=== PATIENT | male | born 1985 | race Caucasian/White ===

== ENCOUNTER 2023-08-27 15:17 | Emergency (ER) | payer OTHER, SELFPAY ==
[2023-08-27 15:25] VITALS: BP 149/90; PULSE 98; RESP 17; TEMP 36.9; O2SAT 98; BMI 30.4
--- NOTE | 2023-08-27 15:33 | ED_ITS ---
HPI - General Adult General Time Seen by Provider: 15:33 Date Seen: 08/27/23 Chief complaint: Cough Stated complaint: cough, headache, ear pain Time Seen by Provider: 08/27/23 15:33 Source: patient and RN notes reviewed Mode of arrival: ambulatory Limitations: no limitations History of Present Illness HPI narrative: Patient is a 38-year-old male coming in with complaint of right ear pain with underlying upper respiratory symptoms. He started with headache, congestion cough about 5 days ago. No documented fever. Patient is a smoker, denies any prior lung issues or any diagnosis of asthma. He quit going to work on Wednesday, is requesting a note for work. He is not aware of any ill contacts. His right ear is hurting but denies any change in hearing. Related Data Previous Rx's Medication Instructions Recorded amoxicillin 875 mg tablet 875 mg PO BID #14 tabs 08/27/23 Allergies Allergy/AdvReac Type Severity Reaction Status Date / Time No Known Drug Allergies Allergy Verified 08/27/23 15:28 Review of Systems Status of ROS: Reports: 6 or more systems reviewed and unremarkable except as noted in History and below PFSH PFSH Social History Smoking Status: Never smoker Do you use any of these nicotine containing products: None How often do you have a drink containing alcohol: never AUDIT-C Alcohol total score: 0 Non-prescribed substance use: denies use Exam Const: Vital Signs, click to edit/add: Vital Signs - 24 hr 08/27/23 15:25 08/27/23 16:26 Temperature 98.4 F 98.4 F Pulse Rate [Pulse Oximeter] 98 98 Respiratory Rate 17 17 Blood Pressure [Ri ght Upper Arm] 149/90 H 149/90 H Pulse Oximetry 98 Oxygen Delivery Me thod Room Air This 38-year-old male had solitary harsh cough that I could hear before coming into the room. Otherwise he is sitting up on the bed, breathing easily on room air, speech is normal, not hoarse, able to speak in complete sentences. Sclera clear, conjugate gaze. Right tympanic membrane is looking more reddish, losing its light reflects, certainly appears different than his left tympanic membrane. There is Steri min obscuring the posterior aspect of his left tympanic membrane but could see anteriorly around this and had a completely clear and translucent left TM. Oropharynx with a little erythematous stippling on the soft palate but no or pharyngeal swelling, no significant exudates or erythema, tongue is normal, well-hydrated mucous membranes. Lungs are clear, good air entry, no wheezing or crackles. CV regular rate and rhythm, no murmur, normal S1 and S2. Documenting provider has reviewed patient's vital signs: yes Course Course ED Course: Reviewed with patient the findings on examination, his right ear is continuing to bother him and is worsening per report. Will treat for ear infection. We reviewed that he likely has an underlying viral upper respiratory infection and will likely just need to continue with [id number] medication management of this. He does have a triple swab pending and we will contact him with the results if anything is positive and guide therapy accordingly if there is any indication for anything further. Vital Signs Vital signs: Initial Vital Signs Temperature 98.4 F 08/27/23 15:25 Temperature Source Temporal Artery Scan 08/27/23 15:25 Pulse Rate 98 08/27/23 15:25 Pulse Rhythm Regular 08/27/23 15:25 Respiratory Rate 17 08/27/23 15:25 Blood Pressure 149/90 H 08/27/23 15:25 Blood Pressure Mean 109 H 08/27/23 15:25 Pulse Oximetry 98 08/27/23 15:25 Oxygen Delivery Method Room Air 08/27/23 15:25 Vital Signs Temperature 98.4 F 08/27/23 15:25 Pulse Rate 98 08/27/23 15:25 Respiratory Rate 17 08/27/23 15:25 Blood Pressure 149/90 H 08/27/23 15:25 Pulse Oximetry 98 08/27/23 15:25 Oxygen Delivery Method Room Air 08/27/23 15:25 Temperature 98.4 F 08/27/23 16:26 Pulse Rate 98 08/27/23 16:26 Respiratory Rate 17 08/27/23 16:26 Blood Pressure 149/90 H 08/27/23 16:26 Pulse Oximetry 98 08/27/23 15:25 Oxygen Delivery Method Room Air 08/27/23 15:25 Medical Decision Making Lab Data Lab results reviewed: Yes I reviewed the patient's lab results Lab results narrative: Patient has COVID, will have nursing staff contact him and have him quarantine per CDC guidelines. Labs: Lab Results 08/27/23 Range/Units 15:20 SARS-CoV-2 (PCR) POSITIVE SARS-CoV-2 A (Negative) Influenza Type A (PCR) Negative PCR FLU A (Negative) Influenza Type B (PCR) Negative PCR FLU B (Negative) RSV (PCR) Negative PCR RSV (Negative) Critical Care Time Critical Care Time Critical Care Time: No Discharge Plan Discharge Clinical Impression: Infection of right ear, COVID-19 Patient Disposition: Home, Self-Care Condition: Stable Instructions: Ear Infection (ED), Upper Respiratory Infection (ED) Additional Instructions: Can continue with Tylenol and ibuprofen as needed for pain control, follow bottle directions for dosing. As far as cough and cold medicine, can take [id number] products of choice following directions on labels. Will initiate antibiotics with amoxicillin for your ear, take as prescribed and complete them. If you are not improving over the next week or worsening at any point, have further concerns, please seek re-evaluation. We will contact you if any of the viral swab is positive. Note provided to be out of work. Activity Level: Activity as Tolerated Discharge Diet: Regular Prescriptions: New amoxicillin 875 mg tablet 875 mg PO BID Qty: 14 0RF Follow Up/Referrals: Mary Alice Chopra NP [Primary Care Provider] - Stand Alone Forms: [employer] Info Instructions
[2023-08-27 16:26] VITALS: BP 149/90; PULSE 98; RESP 17; TEMP 36.9
[2023-08-27 16:36] LABS: PCR FLU A Negative PCR FLU A (Negative); PCR FLU B Negative PCR FLU B (Negative); PCR RSV Negative PCR RSV (Negative)
[2023-08-27 16:49] LABS: SARS PCR* POSITIVE SARS-CoV-2 (Negative)
--- NOTE | 2023-08-27 16:59 | ED.NURSE ---
Attempted to call with COVID results. Left voicemail for Pt to callback.
--- NOTE | 2023-08-27 17:06 | ED.NURSE ---
Spoke to Pt via phone, notified of COVID results. Education provided, including need for quarantine. Denies further questions at this time.
== END 2023-08-27 16:34 | disposition home or self-care (01) ==
LOC: ED 16:34
PROVIDERS: Emergency Provider Family Medicine; PCP Nurse Practitioner Family
DX: H66.91 Otitis media, unspecified, right ear (principal); U07.1 COVID-19
CPT/HCPCS: 87631; 99283

== ENCOUNTER 2023-12-28 12:27 | Emergency (ER) | payer OTHER, SELFPAY ==
[2023-12-28 12:34] VITALS: BP 126/79; PULSE 82; RESP 18; TEMP 36.9; O2SAT 97; BMI 33.3
--- NOTE | 2023-12-28 12:43 | ED.GENADULT ---
HPI - General Adult General Chief complaint: Back Injury/Pain Stated complaint: Lower back pain Time Seen by Provider: 12/28/23 12:31 History of Present Illness HPI narrative: lower back pain that started yesterday, denies injury. twisting motion at work 38-year-old man presenting to the emergency department with concern of back injury. 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 [place] a tension initiate yesterday at work such that he needed to pause what he was doing. Pain has only been escalating since beginning more intensely about an hour after the initial hint of discomfort. Sharp and cramping. Hard to sleep. Intense pain across the low back. Not radiating into his legs. No loss of bowel or bladder control. He acknowledges that he has a physical job and takes care to stay in good shape. Stretches regularly at least before and after work. No significant prior injury. Attempted treatment with Biofreeze. Related Data Home Medications Medication Instructions Recorded Confirmed acetaminophen 325 mg tablet 650 mg PO ONCE PRN 01/07/24 01/07/24 (Tylenol) ibuprofen 200 mg tablet 800 mg PO Q6H PRN 01/07/24 01/07/24 Previous Rx's Medication Instructions Recorded methylprednisolone 4 mg tablets in See Rx Instructions PO .COMPLEX 01/03/24 a dose pack (Medrol (Max)) #21 ea morphine 15 mg immediate release 15 mg PO Q6H PRN pain #40 tabs 01/07/24 tablet Allergies Allergy/AdvReac Type Severity Reaction Status Date / Time No Known Drug Allergies Allergy Verified 12/31/23 10:01 Review of Systems Status of ROS: Reports: 6 or more systems reviewed and unremarkable except as noted in History and below [facility] Medical History (Updated 01/12/24 @ 00:00 by Jose Carlos Duffy) No significant past medical history Surgical History Hx of appendectomy ?Z90.49 - Acquired absence of other specified parts of digestive tract (ICD-10) Family History Aunt Breast cancer Father High blood pressure Social History Narrative: , seven kids, [employer]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 Well-built. He is standing uncomfortably when I enter the room. Hand at right low back. Transitions with discomfort. No hypesthetic response to palpation of the low back. No midline back tenderness. Pain noted in a broad area across the low back. No piriformis pain. Tense low anna-lumbar muscles. SLR negative. Seems to have somewhat positive Irma's with pain generated in the right low back. Pain seems to be more at the right surrounding area of the right SI joint. Truncal rotation either direction limited to 20 degrees. More pain to right. Good strength throughout the lower extremities and with 1+ DTRs. Const: Vital Signs, click to edit/add: Vital Signs - 24 hr 12/28/23 12:34 Temperature 98.5 F Pulse Rate [Right Pulse Oximeter] 82 Respiratory Rate 18 Blood Pressure [Ri ght Upper Arm] 126/79 Pulse Oximetry 97 Oxygen Delivery Me thod Room Air Documenting provider has reviewed patient's vital signs: yes Course Vital Signs Vital signs: Initial Vital Signs Temperature 98.5 F 12/28/23 12:34 Temperature Source Temporal Artery Scan 12/28/23 12:34 Pulse Rate 82 12/28/23 12:34 Respiratory Rate 18 12/28/23 12:34 Blood Pressure 126/79 12/28/23 12:34 Blood Pressure Mean 94 12/28/23 12:34 Blood Pressure Position Sitting 12/28/23 12:34 Pulse Oximetry 97 12/28/23 12:34 Oxygen Delivery Method Room Air 12/28/23 12:34 Vital Signs Temperature 98.5 F 12/28/23 12:34 Pulse Rate 82 12/28/23 12:34 Respiratory Rate 18 12/28/23 12:34 Blood Pressure 126/79 12/28/23 12:34 Pulse Oximetry 97 12/28/23 12:34 Oxygen Delivery Method Room Air 12/28/23 12:34 Temperature 98.5 F 12/28/23 12:34 Pulse Rate 82 12/28/23 12:34 Respiratory Rate 18 12/28/23 12:34 Blood Pressure 126/79 12/28/23 12:34 Pulse Oximetry 97 12/28/23 12:34 Oxygen Delivery Method Room Air 12/28/23 12:34 Medical Decision Making MDM Narrative Medical decision making narrative: Per his question I doubt that available imaging will provide an answer at this time. Seems to have irritated the right SI joint area with resulting muscle spasm. There may also be an evolving discogenic problem. Due to the degree of his pain, I would like to be more proactive and initiate a course of prednisone. Does have a relationship with a chiropractor and would connect with primary care for PT. Will need a work note. See patient discharge plan for further discussion. Discharge Plan Discharge Clinical Impression: Sacroiliac (ligament) sprain, Muscle spasm Patient Disposition: Home, Self-Care Condition: Stable Additional Instructions: Can take up to 800 mg of ibuprofen or up to 1000 mg of acetaminophen per dose. Alternative to the ibuprofen can take up to 500 mg naproxen twice daily. See handout on exercises for sacroiliac joint pain. Since you have access to a chiropractor, this might be a good place to start as well. You might want to schedule appointment with your primary care provider if further paperwork is needed or further evaluation given that this was a work related injury. Prednisone and cyclobenzaprine and small quantity of Mead from [facility]. Take the prednisone has 60mg daily days 1 - 2; then 40mg daily days 3 - 5. Puede haylee hasta 800 mg de ibuprofeno o hasta 1000 mg de paracetamol por dosis. Alec alternativa al ibuprofeno se pueden haylee hasta 500 mg de naproxeno dos veces al d?a. Consulte el folleto sobre ejercicios para el dolor de la articulaci?n sacroil?maury. Dado que tiene acceso a un quiropr?ctico, renetta tambi?n podr?a ser un buen lugar para comenzar. Es posible que desee programar sarah luigi con high proveedor de atenci?n primaria si se necesita m?s documentaci?n o sarah evaluaci?n adicional, dado que se trata de sarah lesi?n relacionada con el trabajo. Prednisona y ciclobenzaprina y lidia?a cantidad de Mead de [facility]. Haylee la prednisona tiene 60 mg diarios d?as 1 - 2; luego 40 mg diarios los d?as 3 - 5. Prescriptions: No Action ibuprofen 200 mg tablet 800 mg PO Q6H PRN acetaminophen [Tylenol] 325 mg tablet 650 mg PO ONCE PRN morphine 15 mg tablet 15 mg PO Q6H PRN (Reason: pain) Qty: 40 0RF methylprednisolone [Medrol (Max)] 4 mg tablets,dose pack See Rx Instructions .ROUTE .COMPLEX Qty: 21 0RF Rx Instructions: for 6 days Follow Up/Referrals: Trip Yoo LAT, ATC, CSCS [Automotive Mechanical Engineer Certified] - Stand Alone Forms: [facility] Info Instructions
== END 2023-12-28 13:50 | disposition home or self-care (01) ==
LOC: ED 13:28
PROVIDERS: Emergency Provider Family Medicine
DX: M62.830 Muscle spasm of back (principal); S33.6XXA Sprain of sacroiliac joint, initial encounter
CPT/HCPCS: 99283; 99284

== ENCOUNTER 2024-01-03 16:51 | Emergency (ER) | payer OTHER, SELFPAY ==
[2024-01-03 17:12] VITALS: BP 144/87; PULSE 82; RESP 18; TEMP 36.7; O2SAT 98; BMI 33.5
--- NOTE | 2024-01-03 18:36 | ED.BACK ---
HPI - Back Pain/Injury General Time Seen by Provider: 18:36 Date Seen: 01/03/24 Chief Complaint: Back Injury/Pain Stated Complaint: Lower back pain, meds arent working Time Seen by Provider: 01/03/24 18:36 Source: patient and RN notes reviewed Mode of arrival: ambulatory Limitations: no limitations History of Present Illness HPI Narrative: Patient is a very pleasant 38-year-old gentleman previously healthy with out history of back pain who returns to the [facility] for the 2nd time with back discomfort. 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 He has never had problems with that before and it is not excessively heavy. He notes he felt something when he turned back facing forward after moving a piece of sheet metal. He does not describe it is significant pain. He states the pain did not start until approximately an hour later. He stopped and got some Biofreeze. Later that in his shift he noted increasing pain mainly on the right low back. He was seen on the by our physician here in the emergency room at which time he was prescribed [place], prednisone. He was not improved and thus he did see Dr. Draper in the [facility] on WednesdayDecember 30 at which time he received oxycodone. He returns today because he is not improved. He states the pain is now radiating down his right posterior leg not past the knee and is radiating to the left side of his back. He states that the oxycodone makes him very tired and because of that he has not been able to work. He states he has been getting questioning from his work about being on oxycodone because he should not work while on that medicine. He states the medicine really isn't working. He denies loss of bowel or bladder control dysuria hematuria. He has not had fever or chills. He has no numbness or tingling in the perineal area. He notes that the pain is actually starting at his right flank now. No diarrhea or vomiting. Related Data Home Medications Medication Instructions Recorded Confirmed cyclobenzaprine 10 mg tablet 10 mg PO QID PRN 12/31/23 12/31/23 hydrocodone 5 mg-acetaminophen 325 1 tab PO Q4-6H PRN 12/31/23 12/31/23 mg tablet prednisone 20 mg tablet 20 mg PO BID 12/31/23 12/31/23 Previous Rx's Medication Instructions Recorded oxycodone 5 mg tablet 5 mg PO Q6H PRN pain #30 tabs 12/31/23 methylprednisolone 4 mg tablets in See Rx Instructions PO .COMPLEX 01/03/24 a dose pack (Medrol (Max)) #21 ea Allergies Allergy/AdvReac Type Severity Reaction Status Date / Time No Known Drug Allergies Allergy Verified 12/31/23 10:01 Review of Systems Status of ROS: Reports: 10 or more systems reviewed and unremarkable except as noted in History and below Const: Denies: fever ENMT: Denies: neck pain Cardio: Denies: chest pain or shortness of breath with exertion Resp: Denies: shortness of breath GI: Reports: other (No loss of bowel or bladder control); Denies: abdominal pain, nausea, vomiting, diarrhea or constipation : Denies: painful urination Musculo: Reports: back pain and extremity pain; Denies: neck pain or extremity swelling Neuro: Denies: headache PFSH PFSH Medical History (Updated 01/03/24 @ 20:30 by Dhara Myers MD) No significant past medical history Surgical History Hx of appendectomy ?Z90.49 - Acquired absence of other specified parts of digestive tract (ICD-10) Family History Aunt Breast cancer Father High blood pressure Social History Narrative: , seven kids, [employer]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 He is in some discomfort but is able to arise from the sitting position on the bed and sit back down without any difficulty. He is observed walking without limp. Head is atraumatic normocephalic. Heart with regular rate and rhythm and lungs are clear. Abdomen soft nontender. Palpation down spine shows discomfort in the paraspinous musculature beginning at about T7. He has pain along the right paraspinous musculature all the way to the posterior iliac spine. Less so on the left. He has full strength in hip flexion knee extension knee flexion ankle flexion. He can dorsiflex plantar flex the great toes without difficulty. DTRs are 1+ bilaterally. He does have some discomfort when trying to stand on his tiptoes but is able to do that. He is able to stand on his heels without difficulty. I do have patient lie on his back and I note positive straight leg raise on the left with contralateral a pain on the right. DTRs 1+ lower extremities and symmetrical. Const: Vital Signs, click to edit/add: Vital Signs - 24 hr 01/03/24 17:12 01/03/24 20:41 01/03/24 20:44 Temperature 98.1 F 98.5 F 98.5 F Pulse Rate [Right Pulse Oximeter] 82 79 79 Respiratory Rate 18 18 18 Blood Pressure [Ri ght Upper Arm] 144/87 H 135/78 135/78 Pulse Oximetry 98 98 Oxygen Delivery Me thod Room Air Room Air Documenting provider has reviewed patient's vital signs: yes Course Course ED Course: At this time differential diagnosis includes but is not limited to muscular pain, radiculitis, disc protrusion, kidney infection, kidney stone, space-occupying lesion of the lumbar spine, Noted in [employer] is oxycodone given on 12/31/2023 30 for 7 days of discomfort by doctor Baron. Dr. Simmons gave [place] on 12/28/2023. Patient notes that the medication is not working except making him sleep although he is not asking for any other pain medication at this time. Patient has had significant ongoing pain. I think we need to consider other possibilities besides a musculoskeletal injury and thus I do discuss labs, radiological studies and urinalysis and patient is willing to undergo those studies. Vital Signs Vital signs: Initial Vital Signs Temperature 98.1 F 01/03/24 17:12 Temperature Source Temporal Artery Scan 01/03/24 17:12 Pulse Rate 82 01/03/24 17:12 Respiratory Rate 18 01/03/24 17:12 Blood Pressure 144/87 H 01/03/24 17:12 Blood Pressure Mean 106 H 01/03/24 17:12 Blood Pressure Position Sitting 01/03/24 17:12 Pulse Oximetry 98 01/03/24 17:12 Oxygen Delivery Method Room Air 01/03/24 17:12 Vital Signs Temperature 98.1 F 01/03/24 17:12 Pulse Rate 82 01/03/24 17:12 Respiratory Rate 18 01/03/24 17:12 Blood Pressure 144/87 H 01/03/24 17:12 Pulse Oximetry 98 01/03/24 17:12 Oxygen Delivery Method Room Air 01/03/24 17:12 Temperature 98.5 F 01/03/24 20:44 Pulse Rate 79 01/03/24 20:44 Respiratory Rate 18 01/03/24 20:44 Blood Pressure 135/78 01/03/24 20:44 Pulse Oximetry 98 01/03/24 20:41 Oxygen Delivery Method Room Air 01/03/24 20:41 Medications Administered Medications: Discontinued Medications Generic Name Dose Route Start Last Admin Trade Name Dmitri PRN Reason Stop Dose Admin Dexamethasone 10 mg 01/03/24 20:30 01/03/24 20:35 Dexamethasone 4 Mg Tablet PO 01/03/24 20:31 10 mg ONCE ONE Administration Morphine Sulfate 8 mg 01/03/24 20:30 01/03/24 20:35 Morphine 4 Mg/Ml Inj IVP 01/03/24 20:31 8 mg ONCE ONE Administration MDM - Back Pain/Injury MDM Narrative Medical decision making narrative: 1. Low back pain-patient noted to have the onset of low back pain with twisting type motion that was not excessively strenuous. Given the contralateral positive straight leg raise and continued pain I do suspect this is a disc protrusion. X-ray is reassuring and was done as patient has had ongoing pain now for almost 1 week. At this time I cannot offer patient anything stronger than the oxycodone that he has been using. Will give him a note for work that he will not need to return until he is cleared by his primary. Will start him on higher dose of steroids. Dexamethasone 10 mg p.o. tonight and he will start a Medrol Dosepak tomorrow. This was sent to the pharmacy. Would like patient to follow up with his primary doctor Baron for recheck. I will try to contact doctor Baron myself tomorrow morning. Prior to discharge will give for patient 8 mg IM morphine as well. Have suggested icing 30 minutes at a time a few times daily. Advise against bed rest. Rather I would like patient to be doing gentle exercises in to be walking as much as possible. Discussed red flag symptoms to include loss of bowel or bladder control, perineal numbness, fever as reasons to return to the emergency room for further evaluation. 2. Disposition-home at this time. Return as needed. No red flag symptoms today with no loss of reflexes, evidence of hyperreflexia, numbness or tingling or loss of bowel or bladder control. Do suggest follow-up with back care clinic as a possible option. Medical Records Attestation: I reviewed the patient's medical records. Lab Data Attestation: I reviewed the patient's lab results. Labs: Lab Results 01/03/24 01/03/24 Range/Units 18:54 19:20 WBC 11.21 H (4.50-11.00) K/uL RBC 5.30 (4.30-5.90) m/uL Hgb 16.3 (13.5-17.5) gm/dL Hct 49.4 (37.0-53.0) % MCV 93 (80-100) fL MCH 31 (26-34) pg MCHC 33 (32-36) gm/dL RDW Coeff of Alejandra 12.7 (11.5-15.5) % Plt Count 278 (140-440) K/uL Neut % (Auto) 54.4 (42.0-72.0) % Lymph % (Auto) 38.8 (20-44) % [place] % (Auto) 4.8 (0.0-11.0) % Eos % (Auto) 1.3 (0.0-7.0) % Baso % (Auto) 0.2 (0.0-3.0) % Neut # (Auto) 6.10 (1.7-7.0) K/uL Lymph # (Auto) 4.30 H (0.90-2.90) K/uL [place] # (Auto) 0.50 (0.00-0.90) K/UL Eos # (Auto) 0.10 (0.00-0.50) K/uL Baso # (Auto) 0.00 (0.00-0.30) K/uL Abs Immat Gran (auto) 0.10 (0.00-0.30) K/uL Imm/Tot Granulo (auto) 0.5 % Sodium 138 (135-149) mmol/L Potassium 4.0 (3.6-5.1) mmol/L Chloride 102 (96-114) mmol/L Carbon Dioxide 30 (20-32) mmol/L Anion Gap 6 L (7-15) mEq/L BUN 13 (5-24) mg/dL Creatinine 0.8 (0.5-1.5) mg/dL Estimated Creat Clear 121.13 Estimated GFR 116 ml/min Glucose 106 (60-115) mg/dL Calcium 9.4 (8.4-10.6) mg/dL C-Reactive Protein 1.1 H (0.5-1.0) mg/dL Urine Color Yellow (Yellow) Urine Appearance Clear (Clear) Urine pH 7.0 (5.0-8.5) Ur Specific [place] 1.020 (1.000-1.030) Urine Protein Negative (Negative) Urine Glucose (UA) Negative (Negative) Urine Ketones Negative (Negative) Urine Blood Trace-intact A (Negative) Urine Nitrite Negative (Negative) Urine Bilirubin Negative (Negative) Urine Urobilinogen 0.2 (0.2-1.0) Ur Leukocyte Esterase Negative (Negative) Urine RBC 0-2 (0-2) Urine WBC 0-2 (0-5) Ur Squamous Epith Cells Few (None-Few) Urine Bacteria None (None) Imaging Data Lumbar spine four view x-ray: Attestation: I have reviewed the pertinent imaging results. My impression: I do not note any compression fracture. There are good disc space is noted. Radiologist's impression: Three views of the lumbar spine are submitted. No comparison. The overall stature and alignment of the lumbar spine is within normal limits. Intervertebral disc space height appears within normal limits. Nonspecific bowel gas pattern. IMPRESSION: 1. No radiographic evidence of acute osseous injury. Discharge Plan Discharge Clinical Impression: Radiculitis Low back pain Qualifiers: Chronicity: acute Back pain laterality: right Sciatica presence: with sciatica Sciatica laterality: sciatica of right side Qualified Code(s): M54.41 - Lumbago with sciatica, right side Patient Disposition: Home, Self-Care Condition: Improved Additional Instructions: You may continue your oxycodone, Tylenol and ibuprofen as you were directed by Dr. Draper. Start Medrol Dosepak tomorrow. This is a steroid which we use as an anti-inflammatory. Please take this medication with food. Call for appointment with Dr. Draper tomorrow. [phone]. He is working out of the [facility]. I will try to contact him in the morning to let him know you will be coming in. Note for you that says no work until you are cleared by doctor Baron to return. Return to the emergency room for worsening symptoms especially loss of bowel or bladder control, fever, numbness or tingling of the pelvis or lower extremities. Prescriptions: New methylprednisolone [Medrol (Max)] 4 mg tablets,dose pack See Rx Instructions .ROUTE .COMPLEX Qty: 21 0RF Rx Instructions: for 6 days No Action prednisone 20 mg tablet 20 mg PO BID hydrocodone-acetaminophen 5-325 mg tablet 1 tab PO Q4-6H PRN cyclobenzaprine 10 mg tablet 10 mg PO QID PRN oxycodone 5 mg tablet 5 mg PO Q6H PRN (Reason: pain) Qty: 30 0RF Follow Up/Referrals: Provider,Not a Local [Primary Care Provider] - Stand Alone Forms: [employer] Info Instructions
--- NOTE | 2024-01-03 18:54 | XR_ITS ---
Patient: ZOILA BLEVINS Facility:?[facility] Patient ID:?[id number] Site Patient ID:?[id number]. Site :?1985 Study:?XRay-Spine Lumbar 3V-01/03/2024 7:22:05 PM Ordering Physician:DENIS Final Report: INDICATION: Low back pain radiating to legs. FINDINGS: Three views of the lumbar spine are submitted. No comparison. The overall stature and alignment of the lumbar spine is within normal limits. Intervertebral disc space height appears within normal limits. Nonspecific bowel gas pattern. IMPRESSION: 1. No radiographic evidence of acute osseous injury. Dictated by Surinder Lozano MD @ 01/03/2024 7:51:27 PM Signed by:?Surinder Lozano MD @01/03/2024 7:51:27 PM (Electronic Signature)
[2024-01-03 19:34] LABS: Basophils Percent Auto 0.2 % (0.0-3.0); Eosinophils Percent Auto 1.3 % (0.0-7.0); Hematocrit 49.4 % (37.0-53.0); Hemoglobin* 16.3 gm/dL (13.5-17.5); Immature Granulocytes Pct Auto 0.5 %; Lymphocytes Percent Auto 38.8 % (20-44); Mean Corpuscular HGB Conc 33 gm/dL (32-36); Mean Corpuscular Hemoglobin 31 pg (26-34); Mean Corpuscular Volume 93 fL (80-100); Monocytes Percent Auto 4.8 % (0.0-11.0); Neutrophils Percent Auto 54.4 % (42.0-72.0); Platelet Count* 278 K/uL (140-440); RDW Coefficient of Variation % 12.7 % (11.5-15.5); White Blood Count* 11.21 K/uL (4.50-11.00)
[2024-01-03 19:35] LABS: Slide Review Reflex No
[2024-01-03 19:52] LABS: Chloride* 102 mmol/L (96-114); Sodium* 138 mmol/L (135-149)
[2024-01-03 19:55] LABS: Creatinine* 0.8 mg/dL (0.5-1.5); Est. Creatinine Clearance* 121.13; Estimated Glomerular Filt Rate 116 ml/min
[2024-01-03 19:56] LABS: Anion Gap 6 mEq/L (7-15); Blood Urea Nitrogen* 13 mg/dL (5-24); Calcium* 9.4 mg/dL (8.4-10.6); Carbon Dioxide* 30 mmol/L (20-32); Glucose* 106 mg/dL (60-115)
[2024-01-03 19:59] LABS: C Reactive Protein* 1.1 mg/dL (0.5-1.0)
[2024-01-03 19:59] LABS: Appearance Urine Clear (Clear); Bilirubin Urine Negative (Negative); Blood Urine Trace-intact (Negative); Color Urine Yellow (Yellow); Glucose Urine Negative (Negative); Ketones Urine Negative (Negative); Leukocyte Esterase Urine Negative (Negative); Nitrite Urine Negative (Negative); Protein Urine Negative (Negative); Urobilinogen Urine 0.2 (0.2-1.0)
[2024-01-03 20:19] LABS: RBC Urine 0-2 (0-2); Squamous Epithelial Cell Urine Few (None-Few); WBC Urine 0-2 (0-5)
[2024-01-03] MEDS: MORPHINE 4 MG/ML INJ 8 MG IVP (20:35)
[2024-01-03] MEDS: dexAMETHasone 4 MG TABLET 10 MG PO (20:35)
[2024-01-03 20:41] VITALS: BP 135/78; PULSE 79; RESP 18; TEMP 36.9; O2SAT 98
[2024-01-03 20:44] VITALS: BP 135/78; PULSE 79; RESP 18; TEMP 36.9
== END 2024-01-03 20:44 | disposition home or self-care (01) ==
PROVIDERS: Emergency Provider Family Medicine
DX: M54.50 Low back pain, unspecified (principal)
CPT/HCPCS: 36415; 72100; 80048; 81001; 85025; 86140; 96374; 99283; 99284; A9270; J2270

== ENCOUNTER 2024-01-21 08:07 | Outpatient (CLI) | payer OTHER, SELFPAY ==
--- NOTE | 2024-01-21 08:15 | MR_ITS ---
Patient: ZOILA BLEVINS Facility:?[facility] Patient ID:?[id number] Site Patient ID:?[id number]. Site :?1985 Study:?MRI-Spine Lumbar WO-01/21/2024 9:53:19 AM Ordering Physician:JEREMY Final Report: Indication: Low back pain radiating to the right side Technique: Multiplanar, multisequence, MRI of the lumbar spine, obtained without contrast. Comparison: Lumbar spine x-ray 01/03/2024 Findings: The lumbar lordosis is preserved. No significant spondylolisthesis. Visualized vertebral body heights are grossly maintained. No evidence of acute fracture or focal compression deformity. Intrinsic bone marrow signal appears within normal limits. No aggressive osseous lesions. The conus medullaris terminates at approximately T12-L1. The intervertebral discs are maintained in height and signal. No suspicious disc bulges or protrusions. No significant neural foraminal or spinal canal stenosis. No concerning findings in the prevertebral and paraspinal soft tissues. Minimal degenerative changes at the included SI joints. Impression: 1. Unremarkable MRI of the lumbar spine. 2. Minimal degenerative changes at the included SI joints. Dictated by Elizabeth Montalvo MD @ 01/21/2024 10:08:59 AM Signed by:?Elizabeth Montalvo MD @01/21/2024 10:08:59 AM (Electronic Signature)
== END 2024-01-21 08:08 | disposition home or self-care (01) ==
PROVIDERS: Visit Provider Family Medicine
DX: M54.16 Radiculopathy, lumbar region (principal); M53.3 Sacrococcygeal disorders, not elsewhere classified
CPT/HCPCS: 72148; T1013

== ENCOUNTER 2024-06-14 09:45 | Outpatient (RCR) | payer OTHER, SELFPAY | END 2024-10-12 23:59 | disposition home or self-care (01) | PROVIDERS: Visit Provider Family Medicine | DX: S39.012A Strain of muscle, fascia and tendon of lower back, initial encounter (principal); M54.16 Radiculopathy, lumbar region; Z74.09 Other reduced mobility; M79.605 Pain in left leg; M79.604 Pain in right leg; Z51.89 Encounter for other specified aftercare | CPT/HCPCS: 97032; 97110; 97140; 97163; 97530 ==